=== PATIENT | female | born 1955 | race Caucasian/White ===

== ENCOUNTER 2017-11-18 11:03 | Day surgery (SDC) | payer BC ==
[~2017-11-18 11:03] MED LIST: Lactated Ringers 1,000 ML IV SCH; Sodium Chloride 0.9% 10 ML Syringe FLUSH PRN
--- NOTE | 2017-11-18 12:13 | PCM.HPR ---
H & P Addendum review - H & P Addendum Review Date of Original H & P: 11/16/17 Date Reviewed: 11/18/17 Time Reviewed: 12:13 Patient was Examined: No Changes
[2017-11-18] MEDS ORDERED: Midazolam 1 MG/ML 2 ML SDV ONE (12:20)
[2017-11-18] MEDS ORDERED: fentaNYL 100 MCG/2 ML SDV ONE (12:20)
[2017-11-18] MEDS ORDERED: Propofol 200 MG/20 ML SDV ONE ×2 (12:20→12:45)
--- NOTE | 2017-11-18 12:48 | PCM.OPNOTE ---
- General Post-Op/Procedure Note Date of Surgery/Procedure: 11/18/17 Operative Procedure(s): Colonoscopy Findings: Normal Pre Op Diagnosis: FH Colon Ca Post-Op Diagnosis: Same Anesthesia Technique: MAC Primary Surgeon: Jose Choe Anesthesia Provider: Kim Wesley EBMary in mLs: 0 Complications: None Condition: Good
--- NOTE | 2017-11-19 10:09 | OR ---
Date of Procedure: 11/18/2017 PREOPERATIVE DIAGNOSIS: Family history of colon cancer in father. POSTOPERATIVE DIAGNOSIS: Normal colonoscopy. PROCEDURE: Colonoscopy. ANESTHESIA: IV sedation. PROCEDURE IN DETAIL: The patient was brought to the procedure room where she was placed on her left side and IV sedation administered. Digital rectal exam was performed, which was normal. Colonoscope was inserted and advanced to the level of the cecum without difficulty. Cecal position was confirmed by identifying the appendiceal lumen and the ileocecal valve. Prep was good and surfaces were well visualized. Upon withdrawing the scope, the ascending, transverse, and descending colon were normal in appearance. Sigmoid colon and rectum were normal. Retroflexion was normal. Air was removed and the scope withdrawn. Patient tolerated the procedure well and returned to recovery in stable condition. Recommend routine colon screening again in 5 years. RAMONA LOU MD /[id number]
== END 2017-11-18 14:36 | disposition home or self-care (01) ==
LOC: LL.SDS 11:03
PROVIDERS: ATTEND Surgery
DX: Z12.11 Encounter for screening for malignant neoplasm of colon (principal); I10 Essential (primary) hypertension; K21.9 Gastro-esophageal reflux disease without esophagitis; Z80.0 Family history of malignant neoplasm of digestive organs; Z79.899 Other long term (current) drug therapy
CPT/HCPCS: 45378; J2250; J2704; J3010; J7120

== ENCOUNTER 2019-08-30 21:09 | Emergency (ER) | payer BC ==
[2019-08-30] MEDS ORDERED: Ondansetron 4 MG/2 ML SDV IVPUSH ONE (21:32)
[2019-08-30] MEDS ORDERED: Sodium Chloride 0.9% 10 ML Syringe FLUSH PRN (21:32)
[2019-08-30 21:59] LABS: CHLORIDE,CL 95 mmol/L (98-107); SODIUM,NA 134 mmol/L (136-145)
--- NOTE | 2019-08-30 22:02 | EDM.PDOC ---
ED HPI GENERAL MEDICAL PROBLEM - General Chief Complaint: General Stated Complaint: vomiting, abdominal pain Time Seen by Provider: 08/30/19 21:45 Source of Information: Reports: Patient History Limitations: Reports: No Limitations - History of Present Illness INITIAL COMMENTS - FREE TEXT/NARRATIVE: Patient comes to ER with complaint of RLQ pain that started yesterday. [place] well prior to that. Noted more frequent harder bowel movements earlier today but only had one looser stool later this evening. No hematochezia. Also several episodes of emesis noted starting around 8pm. No fever/chills. Denies HEENT changes. No cough/wheeze/chest pain/SOB No CV changes. Abdominal pain feels worse if she lays flat, better when knees are bent. Pain is constant. No change with emesis/bowel movements reported. No changes/UTI symptoms/hematuria No focal neuro changes No previous similar pain in past. Past medical history overall unremarkable. Is treated for HTN, GERD Finishing Prednisone taper for rash. Right Lower Abdomen Pain Score (Numeric/FACES): 4 - Related Data Allergies Allergy/AdvReac Type Severity Reaction Status Date / Time Penicillins Allergy Rash Verified 08/30/19 21:46 Home Meds: Home Meds Calcium Carbonate/Vitamin D3 [Calcium 500-Vit D3 200 Tablet] 1 each PO DAILY [History] Losartan [Cozaar] 50 mg PO DAILY 11/18/17 [History] Multivitamin [Multi-Vitamin Daily] 1 tab PO DAILY 11/18/17 [History] Past Medical History Other HEENT History: has reading glasses Cardiovascular History: Reports: Hypertension Respiratory History: Reports: None Gastrointestinal History: Reports: GERD Genitourinary History: Reports: None Musculoskeletal History: Reports: Fracture Other Musculoskeletal History: cracked pelvic bone at age 12 Neurological History: Reports: None Psychiatric History: Reports: None Endocrine/Metabolic History: Reports: None Hematologic History: Reports: None Immunologic History: Reports: None Oncologic (Cancer) History: Reports: Basal Cell Carcinoma Dermatologic History: Reports: Melanoma, Other (See Below) - Past Surgical History HEENT Surgical History: Reports: Other (See Below) Other HEENT Surgeries/Procedures: blepharolplasty GI Surgical History: Reports: Colonoscopy Musculoskeletal Surgical History: Reports: Arthroscopic Knee, Other (See Below) Other Musculoskeletal Surgeries/Procedures:: right knee arthroscopy, partial medial menisectomy with debridement Dermatological Surgical History: Reports: Skin Biopsy, Other (See Below) Social & Family History - Tobacco Use Smoking Status *Q: Never Smoker - Caffeine Use Caffeine Use: Reports: None - Alcohol Use Alcohol Use History: Yes Alcohol Use Frequency: Weekly - Recreational Drug Use Recreational Drug Use: No Drug Use in Last 12 Months: No ED ROS GENERAL - Review of Systems Review Of Systems: ROS reveals no pertinent complaints other than HPI. ED EXAM, GENERAL - Physical Exam Exam: See Below Exam Limited By: No Limitations General Appearance: Alert, WD/WN, Mild Distress Eye Exam: Bilateral Eye: EOMI, PERRL Ears: Normal External Exam Nose: Normal Inspection Throat/Mouth: Normal Inspection, Normal Voice, No Airway Compromise Head: Atraumatic, Normocephalic Neck: Supple, Non-Tender, Full Range of Motion. No: Lymphadenopathy (L), Lymphadenopathy (R) Respiratory/Chest: No Respiratory Distress, Lungs Clear, Normal Breath Sounds, No Accessory Muscle Use, Chest Non-Tender Cardiovascular: Normal Peripheral Pulses, Regular Rate, Rhythm, No Edema, No Murmur GI/Abdominal: Normal Bowel Sounds, Soft, No Distention, Rebound (RLQ), Tender ( RLQ). No: Guarding, Rigid, Mass (Female) Exam: Deferred Rectal (Female) Exam: Deferred Back Exam: Normal Inspection. No: CVA Tenderness (L), CVA Tenderness (R) Extremities: Normal Inspection, Normal Range of Motion, Non-Tender, Normal Capillary Refill Neurological: Alert, Oriented, Normal Cognition, Normal Gait, No Motor/Sensory Deficits Psychiatric: Normal Affect, Normal Mood Skin Exam: Warm, Dry, Intact, Normal Color Course - Vital Signs Last Recorded V/S: Last Vital Signs Temp 36.6 C 08/30/19 21:10 Pulse 64 08/30/19 22:29 Resp 16 08/30/19 22:29 BP 153/73 H 08/30/19 22:29 Pulse Ox 97 08/30/19 22:29 - Orders/Labs/Meds Orders: Active Orders 24 hr Category Date Time Status Abdomen 2V AP Flat Upright [CR] Stat Exams 08/30/19 21:31 Taken Abdomen Pelvis wo Cont [CT] Stat Exams 08/30/19 22:12 Taken CULTURE URINE [RM] Routine Lab 08/30/19 23:36 Ordered Ketorolac [Toradol] Med 08/31/19 00:02 Once 30 mg IVPUSH ONETIME ONE Magnesium Citrate [Citrate of Magnesia] Med 08/31/19 00:01 Once 296 ml PO ONETIME ONE Sodium Chloride 0.9% [Normal Saline] 1,000 ml Med 08/30/19 23:36 Ordered IV .BOLUS Sodium Chloride 0.9% [Saline Flush] Med 08/30/19 21:32 Active 10 ml FLUSH ASDIRECTED PRN Saline Lock Insert [OM.PC] Routine Oth 08/30/19 21:32 Ordered Medication Orders Sodium Chloride (Normal Saline) 1,000 mls @ 500 mls/hr IV .BOLUS ONE Stop: 08/31/19 01:35 Last Admin: 08/30/19 23:41 Dose: 500 mls/hr Magnesium Citrate (Citrate Of Magnesia) 296 ml PO ONETIME ONE Stop: 08/31/19 00:02 Sodium Chloride (Saline Flush) 10 ml FLUSH ASDIRECTED PRN PRN Reason: Keep Vein Open Last Admin: 08/30/19 21:47 Dose: 10 ml Labs: Laboratory Tests 08/30/19 08/30/19 08/30/19 Range/Units 21:30 21:35 21:35 WBC 18.9 H (4.0-10.2) K/uL RBC 4.33 (3.77-5.09) M/uL Hgb 13.7 (11.7-15.5) g/dL Hct 40.0 (34.0-46.0) % MCV 92.4 (84.0-98.0) fL MCH 31.6 (28.2-33.3) pg MCHC 34.3 (31.7-36.0) g/dL RDW 12.3 (11.2-14.1) % Plt Count 357 H (150-350) K/uL Neut % (Auto) 73.3 (45.0-80.0) % Lymph % (Auto) 17.0 (10.0-50.0) % [place] % (Auto) 9.4 (2.0-14.0) % Eos % (Auto) 0.1 (0.0-5.0) % Baso % (Auto) 0.2 (0.0-2.0) % Neut # (Auto) 13.85 H (1.40-7.00) K/uL Lymph # (Auto) 3.22 (0.50-3.50) K/uL [place] # (Auto) 1.77 H (0.00-1.00) K/uL Eos # (Auto) 0.02 (0.00-0.50) K/uL Baso # (Auto) 0.03 (0.00-0.20) K/uL Sodium 134 L (136-145) mmol/L Potassium 3.5 (3.5-5.1) mmol/L Chloride 95 L (98-107) mmol/L Carbon Dioxide 28.4 (21.0-32.0) mmol/L BUN 8 (7-18) mg/dL Creatinine 0.70 (0.51-1.17) mg/dL Est Cr Clr Drug Dosing 71.96 mL/min Estimated GFR (MDRD) > 60 mL/min Glucose 105 (74-106) mg/dL Calcium 8.9 (8.5-10.1) mg/dL Total Bilirubin 0.5 (0.2-1.0) mg/dL AST 17 (15-37) U/L ALT 33 (12-78) U/L Alkaline Phosphatase 50 (46-116) IU/L Total Protein 7.0 (6.4-8.2) g/dL Albumin 3.7 (3.4-5.0) g/dL Specimen Type Urinvoid Urine Color Yellow Urine Appearance Slightly cloudy Urine pH 8.5 (5.0-9.0) Ur Specific [place] 1.020 (1.005-1.030) Urine Protein >=300 H (NEGATIVE) mg/dL Urine Glucose (UA) Negative (NEGATIVE) mg/dL Urine Ketones Negative (NEGATIVE) mg/dL Urine Occult Blood Large H (NEGATIVE) Urine Nitrite Negative (NEGATIVE) Urine Bilirubin Negative (NEGATIVE) Urine Urobilinogen 0.2 (0.2-1.0) E.U./dL Ur Leukocyte Esterase Moderate H (NEGATIVE) Urine RBC 50-75 H /HPF Urine WBC 0-5 /HPF Urine Bacteria Moderate H (NONE TO FEW) /HPF Meds: Medications Generic Name Dose Route Start Last Admin Trade Name Freq PRN Reason Stop Dose Admin Sodium Chloride 1,000 mls @ 500 mls/hr 08/30/19 23:36 08/30/19 23:41 Normal Saline IV 08/31/19 01:35 500 mls/hr .BOLUS ONE Administration Magnesium Citrate 296 ml 08/31/19 00:01 Citrate Of Magnesia PO 08/31/19 00:02 ONETIME ONE Sodium Chloride 10 ml 08/30/19 21:32 08/30/19 21:47 Saline Flush FLUSH 10 ml ASDIRECTED PRN Administration Keep Vein Open Discontinued Medications Generic Name Dose Route Start Last Admin Trade Name Jordan PRN Reason Stop Dose Admin Sodium Chloride 1,000 mls @ 999 mls/hr 08/30/19 22:12 08/30/19 22:21 Normal Saline IV 08/30/19 23:12 999 mls/hr .BOLUS ONE Administration Ondansetron HCl 4 mg 08/30/19 21:32 08/30/19 21:47 Zofran IVPUSH 08/30/19 21:33 4 mg ONETIME ONE Administration - Radiology Interpretation Free Text/Narrative:: Abdominal films overall unremarkable. Increased stool noted ascending colon. - Re-Assessments/Exams Free Text/Narrative Re-Assessment/Exam: Elevated WBC noted. Also increased RBC in UA. UC requested. NS bolus and Zofran ordered. Given the elevated white count, hematuria, and rebound pain, a plain CT of abdomen and pelvis was ordered. Patient declined pain meds at that time. Free Text/Narrative Re-Assessment/Exam: 08/31/19 00:02 Patient feels much better. CT results per Radiology: noninflamed appendix. Moderate stool throughout, desiccated and prominent in area of cecum. Appears to have reflux of stool content into ileum/incompetent ileocecal valve. 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 Occasional noninflamed diverticula. Differential includes pain/nausea associated with constipation, gastroenteritis. Elevated WBC may in part be due to the pain, also could be related to recent Prednisone. Cannot rule out infection however. RBC noted in urine, however no nitrite, and only 0-5 WBC per HPF. Patient denies any urinary symptoms. Antibiotics not indicated at this time. Pending urine culture. This was all discussed with patient. She was given option to stay as Observation patient but elected to go home, saying that she was significantly improved after resting and receiving Zofran and IV fluids. Plan at this time is to have her drink Mag Citrate to promote a bowel movement and see if this provides any additional relief. She is requested to return tomorrow afternoon for repeat labs and recheck. Patient is agreeable with plan. Precautions reviewed. To follow up otherwise as needed if she has sudden worsening problems. Departure - Departure Time of Disposition: 00:12 Disposition: Home, Self-Care 01 Condition: Good Clinical Impression: Abdominal pain Qualifiers: Abdominal location: right lower quadrant Qualified Code(s): R10.31 - Right lower quadrant pain Hematuria Qualifiers: Hematuria type: unspecified type Qualified Code(s): R31.9 - Hematuria, unspecified - Discharge Information *PRESCRIPTION DRUG MONITORING PROGRAM REVIEWED*: Not Applicable *COPY OF PRESCRIPTION DRUG MONITORING REPORT IN PATIENT FRIDA: Not Applicable Instructions: Abdominal Pain, Adult, [id number] Referrals: Carlee Davis NP [Primary Care Provider] - Forms: ED Department Discharge, ED Return to Work/School Form Additional Instructions: Drink entire bottle of Mag Citrate and follow it with an additional glass of water. It will usually take effect between 4-6 hours, but time of effect can vary between patients. See how you feel after it promotes a good bowel movement. Continue to observe for any new symptoms and follow up if you have sudden worsening problems. Please return to the ER tomorrow afternoon for repeat labs so that we can make certain that you are doing well/improving. - My Orders Last 24 Hours: My Active Orders 08/30/19 21:31 Abdomen 2V AP Flat Upright [CR] Stat 08/30/19 21:32 Sodium Chloride 0.9% [Saline Flush] 10 ml FLUSH ASDIRECTED PRN Saline Lock Insert [OM.PC] Routine 08/30/19 22:12 Abdomen Pelvis wo Cont [CT] Stat 08/30/19 23:36 CULTURE URINE [RM] Routine Sodium Chloride 0.9% [Normal Saline] 1,000 ml IV .BOLUS 08/31/19 00:01 Magnesium Citrate [Citrate of Magnesia] 296 ml PO ONETIME ONE 08/31/19 00:02 Ketorolac [Toradol] 30 mg IVPUSH ONETIME ONE - Assessment/Plan Last 24 Hours: My Active Orders 08/30/19 21:31 Abdomen 2V AP Flat Upright [CR] Stat 08/30/19 21:32 Sodium Chloride 0.9% [Saline Flush] 10 ml FLUSH ASDIRECTED PRN Saline Lock Insert [OM.PC] Routine 08/30/19 22:12 Abdomen Pelvis wo Cont [CT] Stat 08/30/19 23:36 CULTURE URINE [RM] Routine Sodium Chloride 0.9% [Normal Saline] 1,000 ml IV .BOLUS 08/31/19 00:01 Magnesium Citrate [Citrate of Magnesia] 296 ml PO ONETIME ONE 08/31/19 00:02 Ketorolac [Toradol] 30 mg IVPUSH ONETIME ONE
[2019-08-30] MEDS ORDERED: Sodium Chloride 0.9% 1,000 ML IV ONE ×2 (22:12→23:36)
[2019-08-31] MEDS ORDERED: Magnesium Citrate Solution 296 ML Bottle PO ONE (00:01)
[2019-08-31] MEDS ORDERED: Ketorolac 30 MG/ML SDV IVPUSH ONE (00:02)
== END 2019-08-31 00:55 | disposition home or self-care (01) ==
LOC: LL.ED 21:09
DX: R10.31 Right lower quadrant pain (principal); R31.9 Hematuria, unspecified; I10 Essential (primary) hypertension; Z88.0 Allergy status to penicillin; Z79.899 Other long term (current) drug therapy
CPT/HCPCS: 36415; 74019; 74176; 80053; 81001; 85025; 96361; 96374; 96375; 99284; A9270; J1885; J2405; J7030

== ENCOUNTER 2019-09-21 09:13 | Day surgery (SDC) | payer BC ==
[2019-09-21] MEDS ORDERED: Propofol 200 MG/20 ML SDV ONE ×2 (09:30→10:25)
--- NOTE | 2019-09-21 10:24 | PCM.HPR ---
H & P Addendum review - H & P Addendum Review Date of Original H & P: 09/06/19 Date Reviewed: 09/21/19 Time Reviewed: 10:24 Patient was Examined: No Changes
--- NOTE | 2019-09-21 10:40 | PCM.OPNOTE ---
- General Post-Op/Procedure Note Date of Surgery/Procedure: 09/21/19 Operative Procedure(s): EGD with Bx Findings: Distal Esophagitis Small HH Pre Op Diagnosis: Dysphasia Post-Op Diagnosis: Same Anesthesia Technique: MAC Primary Surgeon: Jose Choe Complications: None Condition: Good
--- NOTE | 2019-09-21 11:24 | OR ---
Date of Procedure: 09/21/2019 PREOPERATIVE DIAGNOSIS: Dysphagia. POSTOPERATIVE DIAGNOSES: 1. Distal esophagitis. 2. Small hiatal hernia. PROCEDURE: Esophagogastroduodenoscopy with biopsy. ANESTHESIA: IV sedation. DESCRIPTION OF PROCEDURE: The patient was brought to the procedure room, where she was placed on her left side and IV sedation administered. Oral bite block was placed and the upper endoscope advanced into the esophagus under direct vision without difficulty. Vocal cords were viewed and were normal. The scope was advanced to the third portion of the duodenum. Duodenum and pylorus were normal. Antrum and body of the stomach were normal. Retroflexion reveals a small 1 to 2 cm regular hiatal hernia. Squamocolumnar junction appeared regular. There were at least 3 areas of superficial erosions in the distal esophagus indicating esophagitis from reflux. I did take 2 random biopsies from this area. There was no stricture present. Air was removed from the stomach and the scope withdrawn through the remaining esophagus which appeared normal. The patient tolerated the procedure well and returned to Recovery in stable condition. PLAN: The patient will follow up with Carole Connell next week for review of biopsies. Findings are consistent with reflux esophagitis and would recommend that she be placed on antacid medication for at least 4 weeks to allow these to heal. RAMONA LOU MD /[id number]
== END 2019-09-21 11:20 | disposition home or self-care (01) ==
LOC: LL.SDS 09:13
PROVIDERS: ATTEND Surgery
DX: K20.9 Esophagitis, unspecified (principal); K44.9 Diaphragmatic hernia without obstruction or gangrene; Z88.0 Allergy status to penicillin; Z88.8 Allergy status to other drugs, medicaments and biological substances; Z79.899 Other long term (current) drug therapy
CPT/HCPCS: J2704; J7120

== ENCOUNTER 2021-03-30 10:06 | Emergency (ER) | payer BC ==
--- NOTE | 2021-03-30 10:42 | EDM.PDOC ---
ED HPI GENERAL MEDICAL PROBLEM - General Chief Complaint: Laceration Stated Complaint: Laceration Time Seen by Provider: 03/30/21 10:30 Source of Information: Reports: Patient History Limitations: Reports: No Limitations - History of Present Illness INITIAL COMMENTS - FREE TEXT/NARRATIVE: Vertical laceration through left eyebrow due to bumping head on plywood pantry door. No LOC. No vision change. Tetanus should be UTD. No other injuries/complaints - Related Data Allergies Allergy/AdvReac Type Severity Reaction Status Date / Time pantoprazole Allergy UNKNOWN Verified 03/30/21 10:12 Penicillins Allergy Rash Verified 03/30/21 10:12 Home Meds: Home Meds Calcium Carbonate/Vitamin D3 [Calcium 500-Vit D3 200 Tablet] 1 each PO DAILY 11/18/17 [History] Losartan [Cozaar] 50 mg PO DAILY 11/18/17 [History] Multivitamin [Multi-Vitamin Daily] 1 tab PO DAILY 11/18/17 [History] L.acidoph,Paracasei, B.lactis [Probiotic] 1 cap PO DAILY 09/21/19 [History] Past Medical History Other HEENT History: has reading glasses Cardiovascular History: Reports: Hypertension Respiratory History: Reports: None Gastrointestinal History: Reports: GERD Genitourinary History: Reports: Renal Calculus Musculoskeletal History: Reports: Osteoporosis Other Musculoskeletal History: cracked pelvic bone at age 12 Neurological History: Reports: None Psychiatric History: Reports: None Endocrine/Metabolic History: Reports: None Hematologic History: Reports: None Immunologic History: Reports: None Oncologic (Cancer) History: Reports: Basal Cell Carcinoma Dermatologic History: Reports: Other (See Below) Other Dermatologic History: contact dermatitis - Past Surgical History Musculoskeletal Surgical History: Reports: Arthroscopic Knee Social & Family History - Tobacco Use Tobacco Use Status *Q: Never Tobacco User Second Hand Smoke Exposure: Yes - Caffeine Use Caffeine Use: Reports: Coffee - Recreational Drug Use Recreational Drug Use: No ED ROS GENERAL - Review of Systems Review Of Systems: Comprehensive ROS is negative, except as noted in HPI. ED EXAM, SKIN/RASH Exam: See Below Exam Limited By: No Limitations General Appearance: Alert, WD/WN, No Apparent Distress Eye Exam: Left Eye: Periorbital Changes (laceration though left eyebrow), Bilateral Eye: EOMI, PERRL Ears: Hearing Grossly Normal Nose: No: Nasal Deformity, Nasal Swelling, Nasal Drainage Throat/Mouth: Normal Lips, Normal Voice, No Airway Compromise Head: No: Facial Swelling Neck: Supple Respiratory/Chest: No Respiratory Distress Extremities: Normal Capillary Refill Neurological: Alert, Oriented, CN II-XII Intact, Normal Cognition, Normal Gait, No Motor/Sensory Deficits Psychiatric: Normal Affect, Normal Mood Skin: Warm Course - Vital Signs Last Recorded V/S: Last Vital Signs Temp 37.2 C 03/30/21 10:22 Pulse 73 03/30/21 10:22 Resp 18 03/30/21 10:22 BP 148/87 H 03/30/21 10:22 Pulse Ox 98 03/30/21 10:22 - Re-Assessments/Exams Free Text/Narrative Re-Assessment/Exam: 03/30/21 10:52 Laceration cleansed by nursing staff with NS. 2cm laceration closed using tissue adhesive with good result. Wound care reviewed prior to discharge. Departure - Departure Time of Disposition: 10:50 Disposition: Home, Self-Care 01 Condition: Good Clinical Impression: Laceration of left eyebrow Qualifiers: Encounter type: initial encounter Qualified Code(s): S01.112A - Laceration without foreign body of left eyelid and periocular area, initial encounter - Discharge Information *PRESCRIPTION DRUG MONITORING PROGRAM REVIEWED*: Not Applicable *COPY OF PRESCRIPTION DRUG MONITORING REPORT IN PATIENT FRIDA: Not Applicable Instructions: Sutures, [place], or Adhesive Wound Closure, [id number] Referrals: Carlee Davis NP [Primary Care Provider] - Forms: ED Department Discharge Additional Instructions: Keep area clean/dry for 5 days. After that ok to get wet. Wound care as discussed. Follow up as needed if you have any problems/concerns! (Mederma and vitamin E/break open capsules and apply inner oil on scar for scar reduction. Sepsis Event Note (ED) - Evaluation Sepsis Screening Result: No Definite Risk - Focused Exam Vital Signs: Vital Signs Temp Pulse Resp BP Pulse Ox 03/30/21 10:22 37.2 C 73 18 148/87 H 98 03/30/21 10:13 37.2 C 73 18 148/87 H 98
== END 2021-03-30 11:00 | disposition home or self-care (01) ==
LOC: LL.ED 10:06
DX: S01.112A Laceration without foreign body of left eyelid and periocular area, initial encounter (principal); Z88.8 Allergy status to other drugs, medicaments and biological substances; Z88.0 Allergy status to penicillin; W22.8XXA Striking against or struck by other objects, initial encounter
CPT/HCPCS: 12011; 99282; 99282-25

== ENCOUNTER 2022-05-10 14:26 | Emergency (ER) | payer MEDICARE, BC ==
[2022-05-10] MEDS ORDERED: Ketorolac 30 MG/ML SDV IM ONE (15:17)
== END 2022-05-10 16:20 | disposition home or self-care (01) ==
LOC: LL.ED 14:26
DX: S63.502A Unspecified sprain of left wrist, initial encounter (principal); I10 Essential (primary) hypertension; Z88.0 Allergy status to penicillin; Z88.8 Allergy status to other drugs, medicaments and biological substances; Z79.899 Other long term (current) drug therapy; W10.8XXA Fall (on) (from) other stairs and steps, initial encounter
CPT/HCPCS: 73110-LT; 96372; 99283; 99283-25; J1885

== ENCOUNTER 2023-07-15 09:07 | Emergency (ER) | payer BC, MEDICARE ==
[2023-07-15] MEDS ORDERED: Sodium Chloride 0.9% 10 ML Syringe FLUSH PRN (09:09)
[2023-07-15] MEDS ORDERED: Aspirin 81 MG Tab.Chew PO ONE (09:13)
[2023-07-15] MEDS ORDERED: Nitroglycerin 0.4 MG Tab.SL SL PRN (09:14)
[2023-07-15] MEDS ORDERED: Ondansetron 4 MG/2 ML SDV IVPUSH PRN (09:16)
[2023-07-15 09:25] LABS: BASOPHILS ABSOLUTE AUTO 0.06 K/uL (0.00-0.20); BASOPHILS PERCENT AUTO 0.4 % (0.0-2.0); EOSINOPHILS ABSOLUTE AUTO 0.04 K/uL (0.00-0.50); EOSINOPHILS PERCENT AUTO 0.3 % (0.0-5.0); HEMOGLOBIN 14.8 g/dL (11.7-15.5); LYMPHOCYTES ABSOLUTE AUTO 0.87 K/uL (0.50-3.50); LYMPHOCYTES PERCENT AUTO 6.3 % (10.0-50.0); MEAN CORPUSCULAR HEMOGLOBIN 31.5 pg (28.2-33.3); MEAN CORPUSCULAR HGB CONC 34.4 g/dL (31.7-36.0); MEAN CORPUSCULAR VOLUME 91.5 fL (84.0-98.0); MONOCYTES PERCENT AUTO 6.5 % (2.0-14.0); NEUTROPHILS ABSOLUTE AUTO 12.03 K/uL (1.40-7.00); NEUTROPHILS PERCENT AUTO 86.5 % (45.0-80.0); PLATELET COUNT,PLT 298 K/uL (150-350); RED CELL DISTRIBUTION WIDTH 12.1 % (11.2-14.1); WHITE BLOOD CELL COUNT,WBC 13.9 K/uL (4.0-10.2)
[2023-07-15 09:52] LABS: CALCIUM 9.8 mg/dL (8.5-10.1); CREATININE 0.74 mg/dL (0.51-1.17); EST CRCL DRUG DOSING (CG) 61.86 mL/min; POTASSIUM,K 3.9 mmol/L (3.5-5.1)
[2023-07-15 09:54] LABS: ANION GAP 15.9 meq/L (7-15)
[2023-07-15 10:09] LABS: PROTHROMBIN TIME 9.5 SEC (9.0-11.1)
[2023-07-15 11:39] LABS: APPEARANCE,URINE CLOUDY; BILIRUBIN,URINE NEGATIVE (NEGATIVE); COLOR,URINE YELLOW; GLUCOSE,URINE NEGATIVE (NEGATIVE); KETONES,URINE 15 mg/dL (NEGATIVE); LEUKOCYTE ESTERASE,URINE MODERATE (NEGATIVE); NITRITE,URINE POSITIVE (NEGATIVE); OCCULT BLOOD,URINE TRACE-INTACT (NEGATIVE); PH,URINE 8.5 (5.0-9.0); PROTEIN,URINE NEGATIVE (NEGATIVE); UROBILINOGEN,URINE 0.2 E.U./dL (0.2-1.0)
[2023-07-15 11:49] LABS: BACTERIA,URINE MANY /HPF (NONE TO FEW); EPITHELIAL CELLS,URINE MODERATE /LPF; RBC,URINE 0-5 /HPF; WBC,URINE 20-30 /HPF
== END 2023-07-15 12:40 | disposition home or self-care (01) ==
LOC: LL.ED 09:07
DX: R07.89 Other chest pain (principal); N30.01 Acute cystitis with hematuria; R06.02 Shortness of breath; I10 Essential (primary) hypertension; K21.9 Gastro-esophageal reflux disease without esophagitis; Z88.0 Allergy status to penicillin; Z88.8 Allergy status to other drugs, medicaments and biological substances; Z79.899 Other long term (current) drug therapy
CPT/HCPCS: 36415; 71046; 80048; 81001; 82550; 84484; 85025; 85379; 85610; 87086; 87088; 87186; 93005; 93010; 96374; 99284; 99285-25; A9270-GY; J2405

== ENCOUNTER 2023-10-07 10:43 | Day surgery (SDC) | payer BC, MEDICARE ==
[~2023-10-07 10:43] MED LIST changes: -Lactated Ringers 1,000 ML IV SCH; +Midazolam 1 MG/ML 2 ML SDV ONE; +Propofol 200 MG/20 ML SDV ONE; -Sodium Chloride 0.9% 10 ML Syringe FLUSH PRN
[2023-10-07] MEDS ORDERED: Lactated Ringers 1,000 ML IV SCH (11:00)
[2023-10-07] MEDS ORDERED: Sodium Chloride 0.9% 10 ML Syringe FLUSH PRN (11:00)
== END 2023-10-07 14:30 | disposition home or self-care (01) ==
LOC: LL.SDS 10:43
PROVIDERS: ATTEND Surgery
DX: Z12.11 Encounter for screening for malignant neoplasm of colon (principal); K51.40 Inflammatory polyps of colon without complications; K57.30 Diverticulosis of large intestine without perforation or abscess without bleeding; I10 Essential (primary) hypertension; M81.8 Other osteoporosis without current pathological fracture; E55.9 Vitamin D deficiency, unspecified; E78.2 Mixed hyperlipidemia; E66.3 Overweight; Z68.26 Body mass index [BMI] 26.0-26.9, adult; K21.9 Gastro-esophageal reflux disease without esophagitis; Z79.82 Long term (current) use of aspirin; Z79.899 Other long term (current) drug therapy; Z88.0 Allergy status to penicillin
CPT/HCPCS: 00812; J2250; J2704; J7120